=== PATIENT | male | born 1990 | race African-American/Black ===

== ENCOUNTER 2021-06-26 16:54 | Emergency (ER) | payer OTHER ==
[~2021-06-26] VITALS: Ht 160 cm; Wt 115.0 kg
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
[2021-06-26] MEDS ORDERED: IBUPROFEN 600 MG (MOTRIN) TAB PO ONE (17:15)
[2021-06-26] MEDS ORDERED: ACETAMINOPHEN 500 MG TAB (TYLENOL) PO ONE (17:15)
[2021-06-26 17:18] LABS: HEMATOCRIT 42 % (40-54); MEAN CORPUSCULAR HEMOGLOBIN 27 pg (25-34); MEAN CORPUSCULAR HGB CONC 34 g/dL (32-36); MEAN CORPUSCULAR VOLUME 78 fL (80-99); MEAN PLATELET VOLUME 9.2 fL (9.0-12.2); PLATELET COUNT 296 10^3/uL (130-400); WHITE BLOOD COUNT 9.7 10^3/uL (4.3-11.0)
[2021-06-26 17:29] LABS: ALBUMIN 4.3 GM/DL (3.2-4.5); POTASSIUM 3.7 MMOL/L (3.6-5.0)
[2021-06-26 17:30] LABS: CALCIUM 9.6 MG/DL (8.5-10.1)
[2021-06-26 17:33] LABS: BILIRUBIN,TOTAL 0.4 MG/DL (0.1-1.0)
[2021-06-26 17:35] LABS: CREATININE SERUM 0.95 MG/DL (0.60-1.30)
[2021-06-26 17:37] LABS: BILIRUBIN,DIRECT 0.2 MG/DL (0.0-0.3); BILIRUBIN,INDIRECT 0.2 MG/DL
[2021-06-26 17:54] VITALS: BP 151/76
[2021-06-27] MEDS ORDERED: METH-732 PO (17:15)
[2021-06-27] MEDS ORDERED: NAPR-1071 PO (17:15)
== END 2021-06-26 17:54 | disposition home or self-care (01) ==
LOC: ER 16:59
DX: M25.562 Pain in left knee (principal); M54.2 Cervicalgia
CPT/HCPCS: 36415; 80048; 80076; 85027; 93041

== ENCOUNTER 2021-06-27 16:11 | Emergency (ER) | payer OTHER ==
[~2021-06-27] VITALS: Ht 160 cm; Wt 115.0 kg
[2021-06-27 16:27] VITALS: BP 135/88
[2021-06-27] MEDS ORDERED: KETOROLAC 60 MG/2 ML VIAL IM ONE (16:30)
[2021-06-27] MEDS ORDERED: ORPHENADRINE 60 MG/2 ML (NORFLEX) AMP (ED ONLY) IM ONE (16:30)
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
[2021-06-27] MEDS ORDERED: NAPR-1071 PO (17:15)
[2021-06-27] MEDS ORDERED: METH-732 PO (17:15)
== END 2021-06-27 17:17 | disposition home or self-care (01) ==
LOC: EDUNIT# 16:11 → ER 16:13
DX: M25.562 Pain in left knee (principal); M54.5 Low back pain; Z98.890 Other specified postprocedural states; V89.2XXA Person injured in unspecified motor-vehicle accident, traffic, initial encounter
CPT/HCPCS: 72100; 73562; 99281

== ENCOUNTER 2022-03-15 16:19 | Emergency (ER) | payer SELFPAY ==
[~2022-03-15] VITALS: Ht 165 cm; Wt 114.0 kg
[~2022-03-15 16:19] MED LIST: METH-732 PO; NAPR-1071 PO
[2022-03-15] MEDS ORDERED: IBUPROFEN 600 MG (MOTRIN) TAB PO ONE (17:00)
[2022-03-15] MEDS ORDERED: TETANUS,DIPTH,PERTUSS P/F (BOOSTRIX) 0.5 ML VIAL IM ONE (17:00)
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
[2022-03-15 17:15] VITALS: BP 147/61
== END 2022-03-15 17:15 | disposition home or self-care (01) ==
LOC: EDUNIT# 16:19 → ER 16:23
DX: S81.852A Open bite, left lower leg, initial encounter (principal); Z23 Encounter for immunization; W54.0XXA Bitten by dog, initial encounter
CPT/HCPCS: 90715; 99283